=== PATIENT | female | born 1990 | race Caucasian/White ===

== ENCOUNTER 2017-10-25 15:11 | Emergency (ER) | payer MEDICAID ==
[2017-10-25 15:20] VITALS: BMI 28.9
[2017-10-25] MEDS ORDERED: Magnesium Sulfate 1 gm in D5W 1 GM/100 ML BAG IVPB STA (16:00)
[2017-10-25] MEDS ORDERED: Sodium Chloride 0.9% 1,000 ML IV STA (16:00)
--- NOTE | 2017-10-25 16:00 | C.PDOC ---
History Of Present Illness 27yo female, comes to ER with complaint of a persistent migraine x 1 week and states she has a history of migraines. She reports she is unable to take her routine prescription medication due to her current . She reports taking Tylenol 500mg a couple days ago with limited relief. She reports mild nausea, light sensitivity but otherwise denies any weakness, vomiting, or sudden onset/thunderclap headache. She offers no additional medical complaints. Time Seen by Provider: 10/25/17 15:39 Chief Complaint (Nursing): Headache History Per: Patient History/Exam Limitations: no limitations Onset/Duration Of Symptoms: Days Current Symptoms Are (Timing): Still Present Quality: "Pain" Associated Symptoms: Photophobia, Nausea. denies: Blurred Vision, Vomiting, Extremity Weakness Additional History Per: Patient Past Medical History Reviewed: Historical Data, Nursing Documentation, Vital Signs Vital Signs: Last Vital Signs Temp 98.4 F 10/25/17 15:21 Pulse 84 10/25/17 15:21 Resp 17 10/25/17 15:21 BP 125/81 10/25/17 15:21 Pulse Ox 98 10/25/17 16:17 - Medical History PMH: Kidney Stones, Migraine Surgical History: No Surg Hx Family History: States: No Known Family Hx - Social History Hx Tobacco Use: No Hx Alcohol Use: No Hx Substance Use: No - Immunization History Hx Tetanus Toxoid Vaccination: No Hx Influenza Vaccination: No Hx Pneumococcal Vaccination: No Review Of Systems Eyes: Negative for: Vision Change Gastrointestinal: Positive for: Nausea. Negative for: Vomiting Neurological: Positive for: Headache. Negative for: Weakness, Numbness Physical Exam - Physical Exam Appears: Non-toxic, No Acute Distress Skin: Normal Color Head: Atraumatic, Normacephalic, No Tenderness Eye(s): bilateral: Normal Inspection, PERRL, EOMI Oral Mucosa: Moist Neck: Supple Chest: Symmetrical Neurological/Psych: Oriented x3, Normal Speech, Normal Cognition, Normal Motor, Normal Sensation ED Course And Treatment O2 Sat by Pulse Oximetry: 98 (RA) Pulse Ox Interpretation: Normal Progress Note: Patient given Tylenol, IV Fluids, IV Magnesium and Reglan PO. Reevaluation Time: 17:22 Reassessment Condition: Improved Disposition Counseled Patient/Family Regarding: Diagnosis, Need For Followup, Rx Given - Disposition Referrals: your,pmd [Other] Disposition: HOME/ ROUTINE Disposition Time: 17:22 Condition: IMPROVED Prescriptions: Metoclopramide [Reglan] 1 tab PO TID PRN #25 tab PRN Reason: Nausea/Vomiting Instructions: Migraine Headache (DC) Forms: [employer] [facility] (Italian) - Clinical Impression Clinical Impression: Migraine, Nausea - Scribe Statement The provider has reviewed the documentation as recorded by the Reyes Chamberlain Provider Attestation: All medical record entries made by the Reyes were at my direction and personally dictated by me. I have reviewed the chart and agree that the record accurately reflects my personal performance of the history, physical exam, medical decision making, and the department course for this patient. I have also personally directed, reviewed, and agree with the discharge instructions and disposition.
[2017-10-25] MEDS ORDERED: Sodium Chloride 0.9% 1,000 ML ONE (16:46)
[2017-10-25] MEDS ORDERED: Magnesium Sulfate 1 gm in D5W 1 GM/100 ML BAG IVPB ONE (16:56)
[2017-10-25 17:28] VITALS: BP 104/69; PULSE 80; RESP 18; TEMP 98.8; O2SAT 100
== END 2017-10-25 17:43 | disposition home or self-care (01) ==
LOC: C.ER 15:11
DX: O26.899 Other specified pregnancy related conditions, unspecified trimester (principal); G43.909 Migraine, unspecified, not intractable, without status migrainosus
CPT/HCPCS: 96365; 96375; 99284; J2765; J3475; J7030

== ENCOUNTER 2017-11-20 02:40 | Emergency (ER) | payer MEDICAID ==
[2017-11-20 02:41] VITALS: BMI 28.9
[2017-11-20 03:07] VITALS: O2SAT 100
[2017-11-20] MEDS ORDERED: Sodium Chloride 0.9% 1,000 ML IV ONE (03:37)
[2017-11-20] MEDS ORDERED: DiphenhydrAMINE 50 mg/ml Inj IVP STA (03:38)
--- NOTE | 2017-11-20 03:53 | C.PDOC ---
History Of Present Illness 27 year old female patient with h/o migraines comes to the ER with complaint of a migraine x3 days associated with nausea and light sensitivity. She reports taking Tylenol with transient relief. PT had the same symptoms last month with ER evaluation and improvement with IV medication. She has an appointment tomorrow with neurologist. Denies any weakness, vomiting, fever, changes in vision, neck pain, or subjective neurological changes. Time Seen by Provider: 11/20/17 02:44 Chief Complaint (Nursing): Headache History Per: Patient History/Exam Limitations: no limitations Onset/Duration Of Symptoms: Days (x1 week) Current Symptoms Are (Timing): Still Present Quality: "Pain" Associated Symptoms: Photophobia, Nausea. denies: Blurred Vision, Vomiting, Extremity Weakness Additional History Per: Patient Past Medical History Reviewed: Historical Data, Nursing Documentation, Vital Signs Vital Signs: Last Vital Signs Temp 98.1 F 11/20/17 02:59 Pulse 81 11/20/17 02:59 Resp 20 11/20/17 02:59 BP 109/76 11/20/17 02:59 Pulse Ox 100 11/20/17 02:59 - Medical History PMH: Kidney Stones, Migraine Family History: States: No Known Family Hx - Social History Hx Tobacco Use: No Hx Alcohol Use: No Hx Substance Use: No - Immunization History Hx Tetanus Toxoid Vaccination: No Hx Influenza Vaccination: No Hx Pneumococcal Vaccination: No Review Of Systems Except As Marked, All Systems Reviewed And Found Negative. Eyes: Negative for: Vision Change Gastrointestinal: Positive for: Nausea. Negative for: Vomiting Neurological: Positive for: Headache. Negative for: Weakness, Numbness Physical Exam - Physical Exam Appears: Non-toxic, No Acute Distress Skin: Normal Color, Warm, Dry Head: Atraumatic, Normacephalic Eye(s): bilateral: Normal Inspection, PERRL, EOMI Nose: Normal Oral Mucosa: Moist Neck: Normal ROM, Supple Chest: Symmetrical, No Deformity Cardiovascular: Rhythm Regular Respiratory: Normal Breath Sounds, No Accessory Muscle Use Gastrointestinal/Abdominal: Soft, No Tenderness Extremity: Normal ROM (x4) Extremity: Bilateral: Atraumatic Neurological/Psych: Oriented x3, Normal Speech, Normal Cognition, Normal Cranial Nerves (2-12 ), No Other (neuro deficit) ED Course And Treatment O2 Sat by Pulse Oximetry: 100 (RA) Pulse Ox Interpretation: Normal Progress Note: Plans: -- Tyelnol. -- Benadryl. -- Reglan. -- IV fluids. On reassessment, patient is resting comfortably, is tolerating PO, and pain has improved. Headache resolved and pt feels comfortable going home. Patient has no neurologic deficit, photophobia, rash, fever, or nuchal rigidity. Patient was instructed to follow up with physician in 1-2 days. Disposition - Disposition Disposition: HOME/ ROUTINE Disposition Time: 05:23 Condition: STABLE Additional Instructions: FOllow up with your neurologist as scheduled. Return to ER if symptoms persist or worsen. 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 - Scribe Statement The provider has reviewed the documentation as recorded by the Scribchelsi Magana Do All medical record entries made by the Scribe were at my direction and personally dictated by me. I have reviewed the chart and agree that the record accurately reflects my personal performance of the history, physical exam, medical decision making, and the department course for this patient. I have also personally directed, reviewed, and agree with the discharge instructions and disposition.
[2017-11-20] MEDS ORDERED: DiphenhydrAMINE 50 mg/ml Inj ONE (04:00)
[2017-11-20] MEDS ORDERED: Sodium Chloride 0.9% 1,000 ML ONE (04:01)
[2017-11-20 05:35] VITALS: BP 110/68; PULSE 84; RESP 16; TEMP 98.4
== END 2017-11-20 05:35 | disposition home or self-care (01) ==
LOC: C.ER 02:40
DX: R51 Headache (principal)
CPT/HCPCS: 96374; 96375; 99284; J1200; J2765; J7030

== ENCOUNTER 2017-12-16 09:25 | Emergency (ER) | payer MEDICAID ==
[2017-12-16 09:26] VITALS: BMI 28.9
[2017-12-16 09:36] VITALS: TEMP 98.2
[2017-12-16] MEDS ORDERED: Lidocaine 5% Patch TD STA (10:08)
--- NOTE | 2017-12-16 10:08 | C.PDOC ---
History Of Present Illness 27-year-old female who is 14-weeks with a history of migraines presents to the ED for evaluation of upper back and shoulder pain that radiates to the back of her head for 2-3 days. Patient reports the head pain is not similar to migraine headaches and notes some dysuria. Admits to taking Tylenol with no improvement and to having a recent ultrasound with normal results. Denies fever, nausea, vomiting, neck stiffness, cough, shortness of breath, vaginal bleeding, vaginal discharge, abdominal pain, and any other associated symptoms. Time Seen by Provider: 12/16/17 09:38 Chief Complaint (Nursing): Headache History Per: Patient History/Exam Limitations: no limitations Onset/Duration Of Symptoms: Days Current Symptoms Are (Timing): Still Present Past Medical History Reviewed: Historical Data, Nursing Documentation, Vital Signs Vital Signs: Last Vital Signs Temp 98.2 F 12/16/17 09:29 Pulse 92 H 12/16/17 09:29 Resp 17 12/16/17 09:29 BP 123/76 12/16/17 09:29 Pulse Ox 100 12/16/17 09:29 - Medical History PMH: Kidney Stones, Migraine Family History: States: Unknown Family Hx - Social History Hx Tobacco Use: No Hx Alcohol Use: No Hx Substance Use: No - Immunization History Hx Tetanus Toxoid Vaccination: No Hx Influenza Vaccination: No Hx Pneumococcal Vaccination: No Review Of Systems Constitutional: Positive for: Other (head pain secondary to back/shoulder p ain.). Negative for: Fever Respiratory: Negative for: Cough Gastrointestinal: Negative for: Nausea, Vomiting, Abdominal Pain Genitourinary: Positive for: Dysuria. Negative for: Vaginal Discharge, Vaginal Bleeding Musculoskeletal: Positive for: Back Pain (upper back and shoulder pain.). Negative for: Neck Pain Skin: Negative for: Rash Physical Exam - Physical Exam Appears: Well, Non-toxic Skin: Normal Color, Warm, Dry Head: Atraumatic, Normacephalic Eye(s): bilateral: Normal Inspection Throat: Normal, No Erythema, No Exudate Neck: Normal ROM, Supple, No Other (meningeal signs.) Chest: Symmetrical, No Deformity Cardiovascular: Rhythm Regular, No Murmur Respiratory: Normal Breath Sounds, No Rales, No Rhonchi, No Wheezing Gastrointestinal/Abdominal: Normal Exam, Bowel Sounds (normal. ), Soft, No Tenderness, No Guarding, No Rebound Back: No CVA Tenderness, No Vertebral Tenderness, No Paraspinal Tenderness, Other (Bilateral trapezius and bilateral upper back tenderness.) Neurological/Psych: Oriented x3, Normal Speech, Normal Cranial Nerves, Normal Motor, Normal Sensation, Normal Reflexes ED Course And Treatment O2 Sat by Pulse Oximetry: 100 (RA) Pulse Ox Interpretation: Normal Medical Decision Making Medical Decision Making: Plan: -Tylenol -Lidoderm -Urine culture -Urinalysis 1126 pt feeling better after lidoderm patch and tylenol, back and neck pain resolved. pt with dysuria; +1le, 2 wbc and rare bacteria, will tx with macrobid. Disposition Counseled Patient/Family Regarding: Studies Performed, Diagnosis, Need For Followup, Rx Given - Disposition Disposition: HOME/ ROUTINE Disposition Time: 11:29 Condition: GOOD Additional Instructions: Drink increased fluids such as water and cranberry juice. Tylenol for back and shoulder pain. Massage to shoulder area. Avoid heacy lifting. Follow up with your quality rep is next few days. Return to ER for any worsening symptoms. 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 - Scribe Statement The provider has reviewed the documentation as recorded by the Scribe (Arpita Rao) All medical record entries made by the Scribe were at my direction and personally dictated by me. I have reviewed the chart and agree that the record accurately reflects my personal performance of the history, physical exam, medical decision making, and the department course for this patient. I have also personally directed, reviewed, and agree with the discharge instructions and disposition.
[2017-12-16] MEDS ORDERED: Lidocaine 5% Patch TD ONE (10:35)
[2017-12-16 10:48] LABS: SQUAMOUS EPITHIAL 8 /hpf (0-5); URINE AMORPHOUS SEDIMENT RARE /ul (<OCC); URINE BACTERIA RARE (<OCC); URINE BILIRUBIN NEGATIVE (NEGATIVE); URINE BLOOD NEGATIVE (NEGATIVE); URINE CLARITY Hazy (Clear); URINE COLOR Yellow (YELLOW); URINE GLUCOSE (UA) NORMAL (Normal); URINE LEUKOCYTE ESTERASE 1+ Leu/uL (Negative); URINE PROTEIN NEGATIVE (NEGATIVE); URINE UROBILINOGEN NORMAL mg/dL (0.2-1.0)
[2017-12-16 12:17] VITALS: BP 114/69; PULSE 84; RESP 19
[2017-12-17 10:37] VITALS: O2SAT 100
== END 2017-12-16 12:17 | disposition home or self-care (01) ==
LOC: C.ER 09:25
DX: S29.012A Strain of muscle and tendon of back wall of thorax, initial encounter (principal); X58.XXXA Exposure to other specified factors, initial encounter; O23.42 Unspecified infection of urinary tract in pregnancy, second trimester; Z3A.14 14 weeks gestation of pregnancy

== ENCOUNTER 2018-03-18 09:48 | Outpatient (CLI) | payer MEDICAID | END 2018-03-18 09:49 | disposition home or self-care (01) | LOC: C.LAB 09:48 | DX: Z34.83 Encounter for supervision of other normal pregnancy, third trimester (principal) ==

== ENCOUNTER 2018-04-24 20:28 | Inpatient (IN) | payer MEDICAID ==
[2018-04-24 21:30] VITALS: BMI 36.1
[2018-04-24 22:35] LABS: SQUAMOUS EPITHIAL 4 /hpf (0-5); URINE BACTERIA RARE (<OCC); URINE BILIRUBIN NEGATIVE (NEGATIVE); URINE BLOOD NEGATIVE (NEGATIVE); URINE CLARITY Clear (Clear); URINE COLOR Straw (YELLOW); URINE GLUCOSE (UA) NORMAL (Normal); URINE LEUKOCYTE ESTERASE NEG Leu/uL (Negative); URINE PROTEIN NEGATIVE (NEGATIVE); URINE UROBILINOGEN NORMAL mg/dL (0.2-1.0)
--- NOTE | 2018-04-24 22:41 | OBHP ---
Datetime: 04/24/2018 22:00 IP Adm Impression: , intrauterine ; No Active Labor; Intact Membranes IP Admit Plan: Observation/Evaluation Admit Comment, IP Provider: 27 yo female with an IUP at 32.4 weeks and presents with vague c/o of generalized aches and pains and ocassional back and abdominal pains . Pt goes to [facility] for PNC and was seen there at the end of last week and was told to take some Tylenol but she has only taken one. Admits to adequate FM and denies LOF, VB or VD. PMHx Negative PSHx: 1 previous C/S and 1 without complications NKDA Meds: Tylenol and PNV/ ? compliance Tylenol and PNV Social: Denies x 3 ' Pelvic Type - PN: Adequate Extremities - PN: Normal Abdomen - PN: Not Done Back - PN: Normal Breast - PN: Not Done Lungs - PN: Normal Heart - PN: Normal Thyroid - PN: Normal Neurologic - PN: Normal HEENT - PN: Normal General - PN: Normal FHR - Baseline A Provider: 140 Membranes, Provider: Intact Gestation - Est Wks by US: 32.4 weeks EGA AdmitDate IP: 32.4 Vital Signs Provider: Reviewed Vital Signs Provider Details: Morbid Obesity IP Chief Complaint: Maternal discomfort; evaluation NICHD Variability Prov Fetus A: Moderate 6-25bpm NICHD Accel Fetus A IP Provider: 10X10 FHR Category Provider Fetus A: Category I Dilatation, Provider: 0 Genitourinary Exam: Normal DTRs - PN: Normal
[2018-04-24 22:51] LABS: ALB/GLOB RATIO 1.1 (1.0-2.1); ALBUMIN 3.3 g/dL (3.5-5.0); ALT/SGPT 23 U/L (9-52); AST/SGOT 36 U/L (14-36); BLOOD UREA NITROGEN 5 mg/dL (7-17); CALCIUM 8.7 mg/dl (8.6-10.4); GFR NON-AFRICAN AMERICAN > 60
[2018-04-24 23:22] LABS: BASO % 0.3 % (0.0-2.0); EOS % 0.2 % (0.0-4.0); HEMOGLOBIN 12.3 g/dL (11.0-16.0); LYMPH # 0.5 K/uL (1.0-4.3); LYMPH % 5.8 % (20.0-40.0); MEAN CELL VOLUME 92.3 fL (81.0-99.0); MEAN CORPUSCULAR HEMOGLOBIN 31.4 pg (27.0-31.0); MEAN PLATELET VOLUME 9.6 fL (7.2-11.7); MONO # 0.3 K/uL (0.0-0.8); MONO % 3.7 % (0.0-10.0); NEUT # 7.8 K/uL (1.8-7.0); PLATELET COUNT 172 K/uL (130-400); RED CELL DISTRIBUTION WIDTH 13.7 % (11.5-14.5); WHITE BLOOD COUNT 8.7 K/uL (4.8-10.8)
[2018-04-24 23:23] LABS: PLATELET ESTIMATE NORMAL (NORMAL)
[2018-04-24 23:25] LABS: ANISOCYTOSIS SLIGHT; HYPERSEGMENTATION PRESENT; LARGE PLATELETS PRESENT; LYMPHOCYTE 6 % (20-40); MONOCYTE 4 % (0-10); NEUTROPHIL 90 % (50-75); POIKILOCYTOSIS SLIGHT; TOTAL CELLS COUNTED 100
[2018-04-25] MEDS ORDERED: Nalbuphine HCL 10 mg/ml Ampule IVP ONE (00:53)
[2018-04-25] MEDS ORDERED: Nalbuphine HCL 10 mg/ml Ampule ONE (01:02)
[2018-04-25] MEDS ORDERED: Magnesium Sulfate 4 gm/100 ml 4 GM/100 ML BAG IVPB ONE ×2 (02:39→02:41)
[2018-04-25] MEDS ORDERED: Magnesium Sulfate 20 gm 20,000 MG/500 ML BAG IV ONE (02:41)
[2018-04-25] MEDS ORDERED: Lactated Ringer's 1,000 ML IV SCH (02:45)
[2018-04-25] MEDS ORDERED: Magnesium Sulfate 20 gm 20 GM/500 ML BAG IV SCH (03:00)
[2018-04-25] MEDS ORDERED: Betamethasone Soluspan 30 mg/5mL Inj Susp IM ONE ×2 (04:44→16:02)
--- NOTE | 2018-04-25 05:46 | OBADHP ---
Datetime: 04/25/2018 03:18 Admit Comment, IP Provider: 27 yo female with an IUP at 32.4 weeks and presents with vague c/o of generalized aches and pains and ocassional back and abdominal pains . Pt goes to [facility] for PNC and was seen there at the end of last week and was told to take some Tylenol but she has only taken one. Admits to adequate FM and denies LOF, VB or VD. PMHx Negative PSHx: 1 previous C/S and 1 without complications NKDA Meds: Tylenol and PNV/ ? 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 Upper and lower back and neck intermittent pains upon moving around Possible viral Syndrome NST Reactive Drinks little water and probably dehydration CBC and UA WNL Had received one dose of Nubain and fell sleep for a while US done and reported BPP 8/8, Nl fluid, Cephalic, Fluid in cervix and placental lakes o unofficial report Then UC's Q 2-4 mins were recorded and perceived by patient SVE unchanged Started on Magnesium Sulfate for tocolysis Celestone ordered Pt admitted and Monitoring continued as well as IV Pelvic Type - PN: Adequate Extremities - PN: Normal Abdomen - PN: Normal Back - PN: Normal Breast - PN: Not Done Lungs - PN: Normal Heart - PN: Normal Thyroid - PN: Normal Neurologic - PN: Normal HEENT - PN: Normal General - PN: Normal FHR - Baseline A Provider: 140 Membranes, Provider: Intact Contraction Comments Provider: 3-4 Gestation - Est Wks by US: 32.5 Vital Signs Provider: Reviewed IP Chief Complaint: Uterine contractions; Maternal discomfort NICHD Variability Prov Fetus A: Moderate 6-25bpm NICHD Accel Fetus A IP Provider: 10X10 NICHD Decel Fetus A IP Provider: None Dilatation, Provider: 0 Genitourinary Exam: Normal DTRs - PN: Normal EGA AdmitDate IP: 32.5 IP Adm Impression: , intrauterine ; No Active Labor; Intact Membranes IP Admit Plan: Admit to unit; Initiate labor protocol Datetime: 04/24/2018 22:00 Comments, ACOG Physical Exam: SVE closed and very posterior cervix, Long, thick and high Vital Signs Provider Details: Morbid Obesity FHR Category Provider Fetus A: Category I
--- NOTE | 2018-04-25 07:03 | OBHP ---
Datetime: 04/25/2018 04:30 FHR - Baseline A Provider: 140 Vital Signs Provider: Reviewed Dilatation, Provider: 0 Datetime: 04/25/2018 03:18 IP Adm Impression: , intrauterine ; No Active Labor; Intact Membranes IP Admit Plan: Admit to unit; Initiate labor protocol Admit Comment, IP Provider: 27 yo female with an IUP at 32.4 weeks and presents with vague c/o of generalized aches and pains and ocassional back and abdominal pains . Pt goes to [facility] for PNC and was seen there at the end of last week and was told to take some Tylenol but she has only taken one. Admits to adequate FM and denies LOF, VB or VD. PMHx Negative PSHx: 1 previous C/S and 1 without complications NKDA Meds: Tylenol and PNV/ ? 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 intermittent pains upon moving around Possible viral Syndrome NST Reactive Drinks little water and probably dehydration CBC and UA WNL Had received one dose of Nubain and fell sleep for a while US done and reported BPP 8/8, Nl fluid, Cephalic, Fluid in cervix and placental lakes o unofficial report Then UC's Q 2-4 mins were recorded and perceived by patient SVE unchanged Started on Magnesium Sulfate for tocolysis Celestone ordered Pt admitted and Monitoring continued as well as IV Pelvic Type - PN: Adequate Extremities - PN: Normal Abdomen - PN: Normal Back - PN: Normal Breast - PN: Not Done Lungs - PN: Normal Heart - PN: Normal Thyroid - PN: Normal Neurologic - PN: Normal HEENT - PN: Normal General - PN: Normal Membranes, Provider: Intact Contraction Comments Provider: 3-4 Gestation - Est Wks by US: 32.5 EGA AdmitDate IP: 32.5 IP Indication for Induction: Not Applicable IP Chief Complaint: Uterine contractions; Maternal discomfort NICHD Variability Prov Fetus A: Moderate 6-25bpm NICHD Accel Fetus A IP Provider: 10X10 NICHD Decel Fetus A IP Provider: None Genitourinary Exam: Normal DTRs - PN: Normal Datetime: 04/24/2018 22:00 Comments, ACOG Physical Exam: SVE closed and very posterior cervix, Long, thick and high
--- NOTE | 2018-04-25 07:13 | OBPN ---
Datetime: 04/25/2018 04:30 IP Progress Impression: labor IP Procedures: Sterile Vag Exam IP Progress Plan: Continue present management Membranes, Provider: Intact Contraction Comments Provider: Ocassional FHR - Baseline A Provider: 140 Gestation - Est Wks by US: 32.5 IP Progress Note Comment: Pt seen and examined again Ocassional contractions only and patient resting comfortbly Voided in bedpan with a very concentrated urine and a bolus of IV fluids was started + FM Celestone x 1 given 0500 Tracing reassuring for 32 weeks Continue present management Continue present management Vital Signs Provider: Reviewed Dilatation, Provider: 0 NICHD Decel Fetus A IP Provider: None Datetime: 04/25/2018 03:18 NICHD Accel Fetus A IP Provider: 10X10 NICHD Variability Prov Fetus A: Moderate 6-25bpm Datetime: 04/24/2018 22:00 Vital Signs Provider Details: Morbid Obesity FHR Category Provider Fetus A: Category I
--- NOTE | 2018-04-25 08:44 | US ---
PROCEDURE: HISTORY: LMP 09/08/2017 COMPARISON: None TECHNIQUE: Transabdominal scanning of the maternal pelvis and a 2nd/ 3rd trimester with image documentation FINDINGS: Fetus: Single intrauterine gestation heart rate: Present at 158 beats per minute presentation: Cephalic Placenta: Anteriorwithout previa or abruption A few incidental placental lakes noted. Amniotic fluid : Normal appearing: Fluid pockets at least 2 cm in size noted. Amniotic fluid index 15.28 cm anatomy: Limited due to late gestation. biometrics: Gestational age by ultrasound: 34 weeks 0 days +/-2 weeks 3 days. Estimated weight: 2353g +/-352 g Maternal factors: Uterus: Unremarkable. No myometrial masses Cervix:4.4 cm length small amount of fluid in the endocervical canal noted No gross dilated internal cervical os appreciated Free fluid: None Biophysical profile: Breathin Gross body movements: 2 Limb tone: 2 Amniotic Fluid: 2 Total biophysical profile: 09/14 IMPRESSION: Single intrauterine gestation with normal cardiac activity. presentation - cephalic. No previa. Anterior placenta. No previa Biophysical profile 09/14 Limited anatomy - late gestational age. Study performed in labor and delivery
--- NOTE | 2018-04-25 17:58 | OBPN ---
Datetime: 04/25/2018 10:22 IP Progress Impression Other: Previuos C/S; contractions IP Procedures: Sterile Vag Exam IP Progress Plan: Continue present management Contraction Comments Provider: none FHR - Baseline A Provider: 140 IP Progress Note Comment: Patient received in LDR#4 in NAD. Reports feeling "better". Hungry. (+) he adaches, denies blurred vision, epigastric or RUQ pain. No nausea or vomiting. (+) AFM; denies abdomi nal pain, LOF, VB Vitals: 98.4 (04/24/18) 126/46; 115/49, HR 100. Lungs: CTA bilaterally Cardiac: RRR, normal S1, S2 Abdomen: Obese, Gravid. Soft non tender inall quadrants. healed Pfannenstiel scar. - cervical exam: as above. Ectremiteis: no calf tenderness, or edema DTRs: 1+ bilaterally lower extremities Labs: magnesium level 4.4; Assessment: HD#1 27 y.o. , 32w 5d, prev C/S x 1, contractions on magnesium for ne uroprotection, S/P celestone 1 of 2 doses. No cervical change made. Category 1 tracing. GREER most likel y to cumulative effecto f magnesium and nothing to eat since yesterday. Patient is clinically stable. Pl;an: 1) Continue present management 2) Celestone #2 at 1700 hours 3) Patient can eat 4) Monitor BP/ vital signs closely Addendum: informed by R.N. at approximately 1230 hours, patient no longer has a headache Addendum:#2 At approximately it was brought to my attention that second celestone is due 0500 hours 04/26/18 an d not 1700 hours today. To this end, will discharge sheri home and have her return in the morning o f 04/26/18 for second dose. Category 1 tracing. Patient is clinically stable upon discharge. Accompani ed by significant other Plan: 1) discharge patient home 2) Return to [facility] 04/26/18 for Celestone #2. Pt states will do so after taking son to school 3) Note given to excuse from work for the remainder of this week 4) Advised to contact [facility] - follow up Mon 05/01; earlier than her already scheduled appointment f or 05/08/18 5) Reviewed S/S PTL 3) Ret Vital Signs Provider: Reviewed; Within Normal Limits NICHD Accel Fetus A IP Provider: 15X15 FHR Category Provider Fetus A: Category I NICHD Variability Prov Fetus A: Moderate 6-25bpm Dilatation, Provider: 0 Effacement, Provider: 0 Station, Provider: high NICHD Decel Fetus A IP Provider: None
[2018-04-25 21:20] VITALS: BP 118/63; PULSE 106; RESP 18; TEMP 98.6
[2018-04-26] MEDS ORDERED: Betamethasone Soluspan 30 mg/5mL Inj Susp IM ONE (09:30)
== END 2018-04-25 17:17 | disposition home or self-care (01) | DRG 379 ==
LOC: C.EROB 20:28 → C.4D 04-25 02:28
PROVIDERS: ADMIT Obstetrics & Gynecology; ATTEND Obstetrics & Gynecology
DX: O60.03 Preterm labor without delivery, third trimester (principal); O99.213 Obesity complicating pregnancy, third trimester; E66.01 Morbid (severe) obesity due to excess calories; Z3A.32 32 weeks gestation of pregnancy

== ENCOUNTER 2018-04-26 08:55 | Emergency (ER) | payer MEDICAID ==
[2018-04-26] MEDS ORDERED: Betamethasone Soluspan 30 mg/5mL Inj Susp IM ONE (09:42)
[2018-04-26 17:13] VITALS: BP 121/71; PULSE 91; TEMP 98.1
--- NOTE | 2018-04-27 07:52 | OBDCSUM ---
Datetime: 04/26/2018 10:50 Discharge Instructions, Provider: Routine instructions given Discharge Comment, Provider: 27 yo female G2002 with an IUP at 32.6 weeks and presented for her seco nd dose of Celestone after she was admitted the day before with Dehydration, contractions doroteo t ressolved with Magnesium Sulfate. Admitted to feeling much better and to adequate FM. Denies LOF, V B or VD. PMHx Negative PSHx C/S x 1 and 1 NKDA Meds: PNV Social Denies x 3 A/P S/P labor that ressolved with Magnesium Sulfate tocolysis NST reactive No uterine activity recorded or perceived by patient Received her second Celestone injection D/C home in S_S condition Advised to bed and pelvic rest and verbalized understanding Note given for work and school Discharge Diagnosis Prov Other: S/P Labor Return for Celestone injection NST Reactive
--- NOTE | 2018-04-27 07:53 | OBHP ---
Datetime: 04/26/2018 10:00 IP Adm Impression: , intrauterine IP Admit Plan: Discharge home Admit Comment, IP Provider: 27 yo female G2002 with an IUP at 32.6 weeks and presented for her secon d dose of Celestone after she was admitted the day before with Dehydration, contractions that ressolved with Magnesium Sulfate. Admitted to feeling much better and to adequate FM. Denies LOF, VB or VD. PMHx Negative PSHx C/S x 1 and 1 NKDA Meds: PNV Social Denies x 3 A/P S/P labor that ressolved with Magnesium Sulfate tocolysis NST reactive No uterine activity recorded or perceived by patient Received her second Celestone injection D/C home in S_S condition Advised to bed and pelvic rest and verbalized understanding Note given for work and school Pelvic Type - PN: Adequate Extremities - PN: Normal Abdomen - PN: Normal Back - PN: Normal Breast - PN: Not Done Lungs - PN: Normal Heart - PN: Normal Thyroid - PN: Normal Neurologic - PN: Normal HEENT - PN: Normal General - PN: Normal FHR - Baseline A Provider: 120 Contraction Comments Provider: Irregular Gestation - Est Wks by US: 32.6 EGA AdmitDate IP: 32.6 Vital Signs Provider: Reviewed IP Chief Complaint: evaluation NICHD Variability Prov Fetus A: Moderate 6-25bpm NICHD Accel Fetus A IP Provider: 10X10 FHR Category Provider Fetus A: Category I NICHD Decel Fetus A IP Provider: None Genitourinary Exam: Normal DTRs - PN: Normal Datetime: 04/25/2018 10:22 Dilatation, Provider: 0 Effacement, Provider: 0 Station, Provider: high Datetime: 04/25/2018 04:30 Membranes, Provider: Intact
== END 2018-04-26 10:50 | disposition home or self-care (01) ==
LOC: C.EROB 08:55
DX: Z23 Encounter for immunization (principal); Z3A.32 32 weeks gestation of pregnancy
CPT/HCPCS: 96372; 99283; J0702